=== PATIENT | male | born 1970 | race Caucasian/White ===

== ENCOUNTER 2018-06-26 09:50 | Emergency (ER) | payer OTHER ==
[~2018-06-26] VITALS: Ht 172.7 cm; Wt 84.4 kg
[2018-06-26 10:01] VITALS: Ht 172.7 cm; Wt 84.4 kg
[2018-06-26 11:25] LABS: CALCIUM 8.5 mg/dL (8.5-10.1); CARBON DIOXIDE 29.6 mmol/L (21-32); CHLORIDE SERUM 102 mmol/L (98-107); CREATININE SERUM 0.8 mg/dL (0.7-1.3); GFR1 > 60 mL/min; GLUCOSE SERUM 111 mg/dL (74-106); POTASSIUM SERUM 3.9 mmol/L (3.5-5.1); SODIUM SERUM 139 mmol/L (136-145)
[2018-06-26 11:30] LABS: ALBUMIN 3.8 g/dL (3.4-5.0); ALKALINE PHOSPHATASE 150 U/L (46-116); ALT/SGPT 48 U/L (16-63); AST/SGOT 145 U/L (15-37); MAGNESIUM 1.8 mg/dL (1.8-2.4); TOTAL PROTEIN, SERUM 8.3 g/dL (6.4-8.2)
[2018-06-26 11:39] LABS: BASOPHIL % 0 % (0-2); PLATELET COUNT 74 x10^3mcL (130-400); RED CELL DISTRIBUTION WIDTH 14.7 % (11.5-14.5)
[2018-06-26 13:14] VITALS: BP 138/83
[2018-06-26 13:52] LABS: AMPHETAMINE QUAL UR NONE DETECTED (See below)
== END 2018-06-26 13:14 | disposition home or self-care (01) ==
LOC: ED 09:50
PROVIDERS: Emergency Medicine
DX: F10.20 Alcohol dependence, uncomplicated (principal)
CPT/HCPCS: G0480; J2060; J3411; J3475; J3490; J7030